=== PATIENT | female | born 1935 | race African-American/Black ===

== ENCOUNTER 2017-01-16 12:25 | Emergency (ER) | payer OTHER ==
[~2017-01-16] VITALS: Ht 172.7 cm; Wt 85.0 kg
[2017-01-16] MEDS ORDERED: KETOROLAC 60MG/2ML VIAL IM ONE (12:45)
[2017-01-16] MEDS ORDERED: IBUPROFEN 600MG TABLET PO ONE (14:30)
[2017-01-16 15:00] VITALS: BP 167/74
== END 2017-01-16 15:01 | disposition home or self-care (01) ==
LOC: ER 12:54
DX: M19.90 Unspecified osteoarthritis, unspecified site (principal); E11.9 Type 2 diabetes mellitus without complications
CPT/HCPCS: 73030; 96372; 99284; J1885